=== PATIENT | female | born 1985 | race Caucasian/White ===

== ENCOUNTER 2019-07-11 11:06 | Inpatient (IN) | payer BC ==
[2019-07-14] MEDS ORDERED: CARBOPROST TROMETHAMINE 250 MCG/ML 1 ML AMP IM PRN (06:50)
[2019-07-14] MEDS ORDERED: OXYTOCIN 10 UNIT/ML 1 ML VIAL IM PRN (06:50)
[2019-07-14] MEDS ORDERED: TERBUTALINE 1 MG/ML VIAL SQ PRN (06:50)
[2019-07-14] MEDS ORDERED: METHYLERGONOVINE 0.2 MG/ML 1 ML AMP IM PRN (06:50)
[2019-07-14] MEDS ORDERED: LIDOCAINE 0.5% (PF) 5 MG/ML (50 ML SDV) SQ PRN (06:50)
[2019-07-14] MEDS: LACTATED RINGERS 1,000 ML IV SCH ×2 (06:59→11:47)
[2019-07-14] MEDS ORDERED: OXYTOCIN 30 UNITS/500 ML NS 30 UNIT in SALINE 1 500ML.BAG IV SCH (07:00)
[2019-07-14 07:24] LABS: Basophils % (A) 0 %; Eosinophils # (A) 0.1 k/uL (0-0.7); Eosinophils % (A) 1 %; HCT 38.7 % (34.0-46.0); HGB 13.4 gm/dL (11.4-16.0); Lymphocytes % (A) 18 %; MCH 30.9 pg (25.0-35.0); MCHC 34.7 g/dL (31.0-37.0); MCV 89.2 fL (80.0-100.0); Mean Platelet Volume 8.4; Monocytes # (A) 0.5 k/uL (0-1.0); Monocytes % (A) 5 %; Neutrophils # (A) 8.2 k/uL (1.3-7.7); Neutrophils % (A) 75 %; Platelet Count 193 k/uL (150-450); RBC 4.34 m/uL (3.80-5.40); RDW 14.3 % (11.5-15.5)
[2019-07-14] MEDS ORDERED: BUTORPHANOL 1 MG/ML 1 ML VIAL IV PRN (09:59)
--- NOTE | 2019-07-14 10:04 | P.HPOB ---
History of Present Illness H&P Date: 07/14/19 Chief Complaint: 40-3/7 weeks, induction The patient is a 34-year-old 3 para 2001 admitted at 40-3/7 weeks as established by last menstrual period and confirmed by 9 week ultrasound. She is admitted for postdates induction of labor with all signs reassuring. Her pr egnancy has been entirely uncomplicated and group B strep status is negative. Obstetrical history: 3 para 2001 with 2 term vaginal deliveries without complications. EDC of 07/11/2019 was established by last menstrual period and confirmed by 9 week ultrasound. statistics are otherwise listed above. Laboratory workup demonstrates a blood type of B+ with a negative antibody screen. Rubella status is immune. Remainder of the laboratory workup was within normal limits. One hour Glucola was within normal limits and group B strep status is negative. Gynecologic history: Unremarkable with no history of any infections to include STDs. Review of Systems Review of systems is confined to history of present illness. Past Medical History Past Medical History: No Reported History History of Any Multi-Drug Resistant Organisms: None Reported Past Surgical History: No Surgical Hx Reported Additional Past Surgical History / Comment(s): [place] Tooth Extraction Past Anesthesia/Blood Transfusion Reactions: No Reported Reaction Past Psychological History: No Psychological Hx Reported Smoking Status: Never smoker Past Alcohol Use History: None Reported Past Drug Use History: None Reported - Past Family History Father Family Medical History: Coronary Artery Disease (CAD), Diabetes Mellitus Additional Family Medical History / Comment(s): past heart attack, Type II DM Medications and Allergies Home Medications Medication Instructions Recorded Confirmed Type Pnv,Calcium 72/Iron/Folic Acid 1 each PO ONCE 06/14/15 07/14/19 History [ Plus Tablet] Allergies Allergy/AdvReac Type Severity Reaction Status Date / Time amoxicillin Allergy Rash/Hives Verified 07/14/19 06:50 Exam Vital Signs Temp Pulse Resp BP 07/14/19 06:53 97.9 F 103 H 16 120/90 Intake and Output 07/13/19 07/14/19 07/14/19 22:59 06:59 14:59 Other: Weight 74.389 kg In general, this is a well-developed, well-nourished white female in no acute distress. Her heart has a regular rhythm and rate without murmur. Her lungs are clear to otoscopy she bilaterally in all torres. Her abdomen is gravid, nondistended, has normal active bowel sounds, is soft, nontender, and without any palpable masses aside from the uterine fundus. Her extremities are without any cyanosis, clubbing, or edema and are nontender to palpation bilaterally. Digital cervical examination on straights her she approximate 27 m dilated, 60% effaced, the vertex in presentation at -2 station. Artificial rupture of membranes is carried out demonstrating minimal fluid returned aside from some bloody show. Results Result Diagrams: 07/14/19 06:54 Abnormal Lab Results - Last 24 Hours (Table) 07/14/19 Range/Units 06:54 WBC 11.0 H (3.8-10.6) k/uL Neutrophils # 8.2 H (1.3-7.7) k/uL Assessment and Plan (1) Term Current Visit: No Status: Acute Code(s): Z34.80 - ENCOUNTER FOR SUPRVSN OF NORMAL , UNSP TRIMESTER SNOMED Code(s): 13476435 Plan: The patient is admitted for induction of labor. Pitocin augmentation has been started and she has undergone artificial rupture of membranes. She will have close maternal and surveillance and expectant management will be practiced. She is a good candidate for either IV or epidural analgesia, whichever she may choose.
[2019-07-14] MEDS ORDERED: SODIUM CHLORIDE 0.9% 100 ML BAG ONE (11:54)
[2019-07-14] MEDS ORDERED: ROPIVACAINE 5MG/ML 20ML VIAL ONE (11:54)
[2019-07-14] MEDS ORDERED: fentaNYL (PF) 50 MCG/ML 5 ML AMP ONE (11:54)
[2019-07-14] MEDS ORDERED: diphenhydrAMINE 50 MG CAP PO PRN (15:55)
[2019-07-14] MEDS ORDERED: BENZOCAINE/MENTHOL SPRAY 1 GM/SPRAY AEROSOL TOPICAL PRN (15:55)
[2019-07-14] MEDS ORDERED: ZOLPIDEM 5 MG TAB PO PRN (15:55)
[2019-07-14] MEDS ORDERED: HYDROcodone/APAP 7.5-325MG 1 EACH TAB PO PRN (15:55)
[2019-07-14] MEDS ORDERED: IBUPROFEN 600 MG TAB PO PRN (15:55)
[2019-07-14] MEDS ORDERED: ACETAMINOPHEN TAB 325 MG TAB PO PRN (15:55)
[2019-07-14] MEDS ORDERED: WITCH HAZEL 1 EACH MED..PAD TOPICAL PRN (15:55)
[2019-07-14] MEDS ORDERED: diphenhydrAMINE 25 MG CAP PO PRN (15:55)
[2019-07-14] MEDS ORDERED: diphenhydrAMINE 50 MG/ML 1 ML VIAL IVP PRN ×2 (15:55)
[2019-07-14] MEDS ORDERED: SIMETHICONE 80 MG CHEWABLE PO PRN (15:55)
[2019-07-14] MEDS ORDERED: HYDROcodone/APAP 5-325MG 1 EACH TAB PO PRN (15:55)
[2019-07-14] MEDS ORDERED: HYDROCORTISONE 2.5% RECTAL CREAM 30 GM TUBE RECTAL PRN (15:55)
[2019-07-14] MEDS ORDERED: LANOLIN CREAM 5 GM TUBE TOPICAL PRN (15:55)
--- NOTE | 2019-07-14 15:59 | P.PROBDLV ---
Vaginal Delivery Note - . Vaginal Delivery Note: The patient is a 34-year-old 3 para 2001Admitted at 40-3/7 weeks by good dating parameters. She is admitted for postdates induction of labor with all signs reassuring. Her has been entirely uncomplicated and group B strep status is negative. On labor and delivery, she had Pitocin augmentation started followed by artificial rupture of membranes demonstrating minimal but clear fluid. She made progress through the latent phase of labor through the morning and had an epidural catheter placed at the onset of active phase. She then began to progress fairly quickly through the active phase of labor and ultimately progressed to complete where after she pushed for approximately 20-25 minutes to a normal spontaneous vaginal delivery of a viable 7 lbs. 12 oz. baby girl with Apgars of 9 at 1 minute and 10 at 5 minutes delivered in the right occiput anterior position. The after coming fluid did appear to be somewhat meconium-stained and there was terminal meconium as well. The nose and mouth of been thoroughly suctioned both on the perineum and following delivery. The placenta was delivered spontaneously, intact, and grossly normal although there were some moderate calcifications throughout the entire parenchyma. There was a grossly normal fairly centrally inserted three-vessel cord which was fairly fragile and fractured in several places with gentle traction. There were no lacerations of the perineum, vagina, or cervix. Estimated blood loss for the case approximate 200 mL. There were no complications. All sponge, instrument, and needle counts were correct. Both mother and are resting comfortably in recovery.
[2019-07-14] MEDS ORDERED: OXYTOCIN 20 UNITS/1000 ML NS 1,000 ML IV SCH (16:00)
[2019-07-14] MEDS: SENNOSIDES-DOCUSATE SODIUM 1 EACH TAB PO SCH (20:36)
[2019-07-15] MEDS: SENNOSIDES-DOCUSATE SODIUM 1 EACH TAB PO SCH (08:11)
--- NOTE | 2019-07-15 08:45 | P.DS ---
Providers Date of admission: 07/14/19 06:37 Expected date of discharge: 07/15/19 Attending physician: Babatunde Figueroa Primary care physician: Stated None - Discharge Diagnosis(es) (1) Term Current Visit: No Status: Acute (2) Normal spontaneous vaginal delivery Current Visit: No Status: Acute Hospital Course: The patient is a 34-year-old 3 para 2002Admitted at 40-3/7 weeks as established by good dating parameters perches admitted for postdates induction with all signs reassuring. Her was uncomplicated and group B strep status is negative. On labor and delivery, she had Pitocin started followed by artificial rupture of membranes for a scant amount of clear fluid. She had an epidural catheter placed her on the onset of the active phase of labor and then made steady progress to complete where after she pushed to a normal spontaneous vaginal delivery of a viable 7 lbs. 12 oz. baby girl with Apgars of 9 at 1 minute and 10 at 5 minutes. Her course was unremarkable vital signs remaining stable and her temperature was afebrile throughout. She was deemed stable for discharge on day #1 was discharged home to follow-up in the office in 6 weeks' time routinely. She was instructed to call for any significantly increased bleeding or foul-smelling lochia, significantly increased fever abdominal pain, perineal complaints, breast complaints, or anything else that concerned her. She was additionally instructed to have nothing in the vagina for at least 6 weeks time to include intercourse. She understood her instructions and agrees to follow up as noted above. Discharge medications included only continue vitamins as she has opted to breast- feed as well as [id number] analgesic pain medications. Maternal blood type is B+ and rubella status is immune. Procedures: #1. Pitocin induction #2. Artificial rupture of membranes #3. Epidural analgesia #4. Normal spontaneous vaginal delivery Patient Condition at Discharge: Good Plan - Discharge Summary New Discharge Prescriptions: No Action Pnv,Calcium 72/Iron/Folic Acid [ Plus Tablet] 1 each PO ONCE Discharge Medication List Pnv,Calcium 72/Iron/Folic Acid [ Plus Tablet] 1 each PO ONCE 06/14/15 [History] Follow up Appointment(s)/Referral(s): Babatunde Figueroa MD [STAFF PHYSICIAN] - 6 Weeks Discharge Disposition: HOME SELF-CARE
[2019-07-16] MEDS: SENNOSIDES-DOCUSATE SODIUM 1 EACH TAB PO SCH (08:00)
[2019-07-16 08:16] VITALS: RESP 18
[2019-07-16 17:48] VITALS: BP 123/72; PULSE 90; TEMP 97.9
== END 2019-07-16 17:35 | disposition home or self-care (01) | DRG 807 ==
LOC: 4FBP 07-14 06:37
PROVIDERS: ADMIT Obstetrics & Gynecology; ATTEND Obstetrics & Gynecology
PROC: 10E0XZZ Delivery of Products of Conception, External Approach (ICD-10-PCS; principal; 2019-07-14)
PROC: 3E033VJ Introduction of Other Hormone into Peripheral Vein, Percutaneous Approach (ICD-10-PCS; principal; 2019-07-14)
PROC: 10907ZC Drainage of Amniotic Fluid, Therapeutic from Products of Conception, Via Natural or Artificial Opening (ICD-10-PCS; principal; 2019-07-14)
DX: O48.0 Post-term pregnancy (principal); Z37.0 Single live birth; O77.0 Labor and delivery complicated by meconium in amniotic fluid; Z3A.40 40 weeks gestation of pregnancy; Z82.49 Family history of ischemic heart disease and other diseases of the circulatory system; Z83.3 Family history of diabetes mellitus; Z88.0 Allergy status to penicillin
CPT/HCPCS: 85025; 86850; 86900; 86901